=== PATIENT | male | born 1965 | race Two or more races ===

== ENCOUNTER 2022-10-14 10:50 | Outpatient (CLI) | payer OTHER | END 2022-10-14 10:55 | disposition home or self-care (01) | LOC: LAB 10:50 | DX: E22.1 Hyperprolactinemia (principal); D64.9 Anemia, unspecified; E03.9 Hypothyroidism, unspecified; E55.9 Vitamin D deficiency, unspecified; R73.9 Hyperglycemia, unspecified; E78.9 Disorder of lipoprotein metabolism, unspecified; N39.0 Urinary tract infection, site not specified; E72.11 Homocystinuria; I25.10 Atherosclerotic heart disease of native coronary artery without angina pectoris ==

== ENCOUNTER 2024-06-28 12:37 | Inpatient (IN) | payer OTHER ==
[~2024-06-28] VITALS: Ht 170.2 cm; Wt 70.3 kg
[2024-06-28] MEDS ORDERED: NORVASC5 MG (13:03)
[2024-06-28 13:56] LABS: HEMATOCRIT 44.9 % (39.0-48.0); HEMOGLOBIN 15.2 g/dL (13-16.00); MEAN CELL VOLUME 83.8 fL (80.0-100.00); MEAN CORPUSCULAR HEMOGLOBIN 28.5 pg (27.00-32.0); RED BLOOD COUNT 5.36 M/uL (4.00-6.00); RED CELL DISTRIBUTION WIDTH 14.4 % (11.5-14.5)
[2024-06-28 14:15] LABS: INR 1.1; PARTIAL THROMBOPLASTIN TIME 37.9 SECONDS (22.0-34.0); PROTHROMBIN TIME 11.9 SECONDS (9.0-11.5)
[2024-06-28 14:28] LABS: ALBUMIN 3.2 gm/dL (3.4-5.0); CALCIUM 7.9 mg/dL (8.5-10.1); CREATININE SERUM 1.08 mg/dL (0.70-1.30); GFR 69.98; POTASSIUM 3.56 mEq/L (3.5-5.1); TOTAL PROTEIN 6.2 gm/dL (6.4-8.2)
[2024-06-28 14:31] LABS: PLATELET COUNT 13 K/uL (150-450)
[2024-06-28] MEDS ORDERED: AMLODIPINE BESYLATE 5 MG TABLET PO SCH (15:02)
[2024-06-28] MEDS ORDERED: RINGERS SOLUTION,LACTATED 1,000 ML IV SCH (15:15)
[2024-06-28 18:56] VITALS: BP 112/74; O2SAT 95
[2024-06-29 01:07] VITALS: BP 110/74; O2SAT 96
[2024-06-29 08:00] VITALS: BP 116/76; O2SAT 96
[2024-06-29 08:05] LABS: HEMATOCRIT 39.6 % (39.0-48.0); MEAN CELL VOLUME 81.9 fL (80.0-100.00); MEAN CORPUSCULAR HEMOGLOBIN 28.9 pg (27.00-32.0); MEAN CORPUSCULAR HGB CONC 35.3 g/dl (32.0-36.0); RED BLOOD COUNT 4.83 M/uL (4.00-6.00); RED CELL DISTRIBUTION WIDTH 14.2 % (11.5-14.5)
[2024-06-29 08:07] LABS: PLATELET COUNT 37 K/uL (150-450)
[2024-06-29 08:19] LABS: ALBUMIN 2.8 gm/dL (3.4-5.0); BILIRUBIN TOTAL 0.87 mg/dL (0.3-1.2); CALCIUM 7.7 mg/dL (8.5-10.1); CREATININE SERUM 0.7 mg/dL (0.70-1.30); GFR 115.43; GLOBULINA 2.7 G/DL (2.4-3.5); MAGNESIUM 2.2 mg/dL (1.8-2.4); PHOSPHOROUS 2.6 mg/dL (2.5-4.9); POTASSIUM 3.66 mEq/L (3.5-5.1); TOTAL PROTEIN 5.5 gm/dL (6.4-8.2)
[2024-06-29] MEDS ORDERED: PANTOPRAZOLE SODIUM 40 MG/VIAL VIAL IV SCH (09:00)
[2024-06-29] MEDS ORDERED: CALCIUM CARBONATE/VITAMIN D3 1 TAB TABLET PO SCH (17:00)
[2024-06-29 17:26] VITALS: BP 118/76; O2SAT 97
[2024-06-30 02:51] VITALS: BP 121/77; O2SAT 95
[2024-06-30 07:16] LABS: HEMATOCRIT 40.1 % (39.0-48.0); HEMOGLOBIN 13.9 g/dL (13-16.00); MEAN CELL VOLUME 83.5 fL (80.0-100.00); MEAN CORPUSCULAR HGB CONC 34.7 g/dl (32.0-36.0); RED CELL DISTRIBUTION WIDTH 14.2 % (11.5-14.5)
[2024-06-30 07:37] LABS: PLATELET COUNT 88 K/uL (150-450)
[2024-06-30 07:55] LABS: BILIRUBIN TOTAL 0.86 mg/dL (0.3-1.2); CALCIUM 8.3 mg/dL (8.5-10.1); CREATININE SERUM 0.65 mg/dL (0.70-1.30); GFR 125.73; GLOBULINA 2.9 G/DL (2.4-3.5); POTASSIUM 3.75 mEq/L (3.5-5.1); TOTAL PROTEIN 5.9 gm/dL (6.4-8.2)
[2024-06-30 08:56] VITALS: BP 112/74; O2SAT 98
== END 2024-06-30 14:38 | disposition home or self-care (01) | DRG 866 ==
LOC: ER 12:40 → MEDJ 17:35
PROVIDERS: General Practice; ADMIT Internal Medicine; ATTEND Internal Medicine
PROC: 30233R1 Transfusion of Nonautologous Platelets into Peripheral Vein, Percutaneous Approach (ICD-10-PCS; principal; 2024-06-28)
DX: A90 Dengue fever [classical dengue] (principal); R04.2 Hemoptysis; D69.6 Thrombocytopenia, unspecified; R74.01 Elevation of levels of liver transaminase levels; I10 Essential (primary) hypertension; D72.818 Other decreased white blood cell count

== ENCOUNTER → 2025-05-06 08:14 | Outpatient (CLI) | payer OTHER ==
[~2025-05-06 08:14] MED LIST: NORVASC5 MG
[2025-05-06 10:20] LABS: ALT/SGPT 35.0 U/L (12-78); AST/SGOT 16.0 U/L (15-37); BILIRUBIN TOTAL 0.57 mg/dL (0.3-1.2); BUN CREA RATIO 23.0 (7.0-25.0); CHOL HDL RATIO 4.0 (0-5.0); CREATININE SERUM 0.84 mg/dL (0.70-1.30); GFR 93.21; GLOBULINA 2.9 G/DL (2.4-3.5); GLUCOSE FASTING 105.0 mg/dL (65-100); HDL 45.0 mg/dl (40-60); LDL 119.0 mg/dl (0-130); OSMOLALITY SERUM 291.0 MOSM/KG (275-295); VLDL 15.0 (0-39)
== END | disposition home or self-care (01) ==
LOC: LAB 08:14
DX: I11.9 Hypertensive heart disease without heart failure (principal); E78.00 Pure hypercholesterolemia, unspecified; E55.9 Vitamin D deficiency, unspecified; E11.9 Type 2 diabetes mellitus without complications